=== PATIENT | male | born 1930 | race Caucasian/White ===

== ENCOUNTER → 2017-01-09 15:19 | Outpatient (CLI) | payer MEDICARE ==
[2013-05-28 13:02] VITALS: BMI 24.0
[~2017-01-09 15:19] MED LIST: CARDURA4 MG PO; COZAAR100 MG PO; MOBIC7.5 MG PO; PRAVACHOL20 MG PO; PRILOSEC20 MG PO; ULTRAM50 MG PO
== END | disposition home or self-care (01) ==
LOC: D.CT 11:30
DX: R26.89 Other abnormalities of gait and mobility (principal)

== ENCOUNTER → 2017-01-26 15:02 | Outpatient (CLI) | payer MEDICARE ==
[2013-05-28 13:02] VITALS: BMI 24.0
== END | disposition home or self-care (01) ==
LOC: D.MRI 15:02
DX: I63.9 Cerebral infarction, unspecified (principal)